=== PATIENT | female | born 1980 | race Caucasian/White ===

== ENCOUNTER 2022-03-29 07:40 | Inpatient (IN) | payer BC ==
[~2022-03-29] VITALS: Ht 162.5 cm; Wt 104.0 kg
[2022-03-29 07:56] VITALS: BP 129/77
[2022-03-29] MEDS ORDERED: DULOXETINE HCL30 MG PO (13:22)
[2022-03-29] MEDS ORDERED: DITROPAN XL5 MG PO (13:23)
[2022-03-29] MEDS ORDERED: NEURONTIN100 MG PO (13:23)
[2022-03-29] MEDS ORDERED: ADVIL100 M1 PO (13:24)
[2022-03-29] MEDS ORDERED: PHENTERMINE HYD15 MG PO (13:24)
[2022-03-29] MEDS ORDERED: CHROMIUM400 MCG PO ×2 (13:24→15:40)
[2022-03-29] MEDS ORDERED: TYLENOL EXTRA500 MG PO (13:25)
[2022-03-29 15:39] LABS: HEMATOCRIT 38.7 % (37.0-47.0); MEAN CELL VOLUME 80.1 fl (81.0-99.0); MEAN CORPUSCULAR HGB 26.7 pg (27.0-31.0); MEAN CORPUSCULAR HGB CONC 33.3 g/dl (33.0-37.0); MEAN PLATELET VOLUME 9.4 fl (9.6-12.3); PLATELET COUNT AUTOMATED 260 10*3/uL (130-400); RED BLOOD COUNT 4.83 10*6/uL (4.10-5.10); RED CELL DISTRI WIDTH 13.6 % (0-14.5); WHITE BLOOD COUNT 8.6 10*3/uL (4.8-10.8)
[2022-03-29] MEDS ORDERED: PHENTERMINE H37.5 M3 PO (15:39)
[2022-03-29] MEDS ORDERED: CYCLOBENZAPRINE10 MG PO (15:40)
[2022-03-29] MEDS ORDERED: TIZANIDINE HCL4 M1 PO (15:40)
[2022-03-29] MEDS ORDERED: ADVIL200 M1 PO (15:41)
[2022-03-29 15:54] LABS: MANUAL DIFF REFLEX YES
[2022-03-29 16:00] LABS: ALKALINE PHOSPHATASE 71 U/L (46-116); BUN 9 mg/dl (9-23); CHLORIDE 110 mmol/L (98-107); CREATININE 0.55 mg/dL (0.55-1.02); POTASSIUM 3.5 mmol/L (3.4-5.1); SGPT/ALT 33 U/L (10-49); SODIUM 139 mmol/L (136-145); TOTAL PROTEIN 6.4 gm/dL (6.0-8.0)
[2022-03-29 16:01] LABS: PLATELET SUFFICIENCY NORMAL (NORMAL); TOTAL CELLS COUNTED 100 #CELLS
[2022-03-29 21:19] VITALS: BP 118/62
[2022-03-29 23:32] LABS: BILIRUBIN Negative (Negative); BLOOD Negative (Negative); CLARITY Cloudy (Clear); COLOR Yellow (Yellow); GLUCOSE Trace (Negative); KETONE Trace (Negative); LEUKO ESTERASE Negative (Negative); NITRITE Positive (Negative); SPECIFIC GRAVITY >= 1.030 (1.001-1.030)
[2022-03-29 23:45] LABS: BACTERIA 4+; EPITHELIAL CELLS 21-30; WBC 0-2 wbc/hpf (0-5)
[2022-03-30 02:20] VITALS: BP 116/68
[2022-03-30 05:09] LABS: BUN 12 mg/dl (9-23); CHLORIDE 108 mmol/L (98-107); CHOLESTEROL 128 mg/dL (<200); CREATININE 0.53 mg/dL (0.55-1.02); LDL CHOLESTEROL 64 mg/dL (9-159); POTASSIUM 3.9 mmol/L (3.4-5.1); SODIUM 141 mmol/L (136-145); THYROID STIM HORMONE (HS) 0.321 uIU/ml (0.550-4.780); TRIGLYCERIDES 47 mg/dl (<150)
[2022-03-30 06:13] LABS: HEMATOCRIT 38.7 % (37.0-47.0); LYMPH # 0.9 10*3/uL (1.3-4.4); LYMPH % 8.6 % (27.0-41.0); MEAN CELL VOLUME 80.8 fl (81.0-99.0); MEAN CORPUSCULAR HGB 26.5 pg (27.0-31.0); MEAN CORPUSCULAR HGB CONC 32.8 g/dl (33.0-37.0); MEAN PLATELET VOLUME 10.1 fl (9.6-12.3); MONO # 0.2 10*3/uL (0.1-1.0); MONO % 1.9 % (3.0-9.0); NEUT # 9.5 10*3/uL (2.3-7.9); NEUT % 88.9 % (47.0-73.0); PLATELET COUNT AUTOMATED 300 10*3/uL (130-400); RED BLOOD COUNT 4.79 10*6/uL (4.10-5.10); RED CELL DISTRI WIDTH 13.6 % (0-14.5); WHITE BLOOD COUNT 10.7 10*3/uL (4.8-10.8)
[2022-03-30 10:00] VITALS: BP 130/76
[2022-03-30 21:28] VITALS: BP 146/86
[2022-03-31 02:30] VITALS: BP 130/68
[2022-03-31 05:18] LABS: BUN 18 mg/dl (9-23); CHLORIDE 109 mmol/L (98-107); CREATININE 0.68 mg/dL (0.55-1.02); POTASSIUM 4.3 mmol/L (3.4-5.1); SODIUM 142 mmol/L (136-145)
[2022-03-31 05:45] VITALS: BP 147/80
[2022-03-31 08:00] VITALS: BP 125/77
[2022-03-31 12:00] VITALS: BP 131/74
[2022-03-31] MEDS ORDERED: NITROFURANTOIN100 M9 PO (14:29)
[2022-03-31 16:00] VITALS: BP 123/62
== END 2022-03-31 18:55 | DRG 552 ==
LOC: ED 07:40 → EDHOLD 13:16 → 5E 03-31 05:13
PROVIDERS: Internal Medicine; Student in an Organized Health Care Education/Training Program; ADMIT Emergency Medicine; ATTEND Emergency Medicine
DX: M51.37 Other intervertebral disc degeneration, lumbosacral region (principal); N30.00 Acute cystitis without hematuria; M51.27 Other intervertebral disc displacement, lumbosacral region; E87.8 Other disorders of electrolyte and fluid balance, not elsewhere classified; G89.29 Other chronic pain; R71.8 Other abnormality of red blood cells; R73.9 Hyperglycemia, unspecified; F32.A Depression, unspecified; B96.1 Klebsiella pneumoniae [K. pneumoniae] as the cause of diseases classified elsewhere; N32.81 Overactive bladder; Z88.1 Allergy status to other antibiotic agents; Z88.2 Allergy status to sulfonamides; Z83.3 Family history of diabetes mellitus; Z82.49 Family history of ischemic heart disease and other diseases of the circulatory system; Z80.8 Family history of malignant neoplasm of other organs or systems; Z84.1 Family history of disorders of kidney and ureter